=== PATIENT | female | born 1940 | race Caucasian/White ===

== ENCOUNTER 2023-06-28 09:00 | Outpatient (RCR) | payer MEDICARE, SELFPAY | END 2023-06-28 23:59 | disposition home or self-care (01) | LOC: RST 09:00 | PROVIDERS: ATTENDING PHYSICIAN Otolaryngology; FAMILY PHYSICIAN Family Medicine | DX: J38.3 Other diseases of vocal cords (principal); R49.0 Dysphonia | CPT/HCPCS: 92524 ==

== ENCOUNTER 2023-08-06 15:02 | Outpatient (RCR) | payer MEDICARE, SELFPAY | END 2023-08-06 23:59 | disposition home or self-care (01) | LOC: RST 15:02 | PROVIDERS: ATTENDING PHYSICIAN Otolaryngology; FAMILY PHYSICIAN Family Medicine | DX: J38.3 Other diseases of vocal cords (principal); R49.0 Dysphonia | CPT/HCPCS: 92507 ==

== ENCOUNTER 2023-09-03 13:50 | Outpatient (RCR) | payer MEDICARE, SELFPAY | END 2023-09-03 23:59 | disposition home or self-care (01) | LOC: RST 13:50 | PROVIDERS: ATTENDING PHYSICIAN Otolaryngology; FAMILY PHYSICIAN Family Medicine | DX: J38.3 Other diseases of vocal cords (principal); R49.0 Dysphonia | CPT/HCPCS: 92507 ==

== ENCOUNTER 2023-09-24 13:37 | Outpatient (RCR) | payer MEDICARE, SELFPAY | END 2023-09-24 23:59 | disposition home or self-care (01) | LOC: RST 13:37 | PROVIDERS: ATTENDING PHYSICIAN Otolaryngology; FAMILY PHYSICIAN Family Medicine | DX: J38.3 Other diseases of vocal cords (principal); R49.0 Dysphonia | CPT/HCPCS: 92507 ==

== ENCOUNTER → 2023-10-02 15:16 | Outpatient (REF) | payer MEDICARE, SELFPAY | LOC: RAD 15:16 | PROVIDERS: ATTENDING PHYSICIAN Family Medicine; FAMILY PHYSICIAN Family Medicine | DX: M54.42 Lumbago with sciatica, left side (principal) | CPT/HCPCS: 72110 ==

== ENCOUNTER 2023-10-15 14:26 | Outpatient (RCR) | payer MEDICARE, SELFPAY | END 2023-10-15 23:59 | disposition home or self-care (01) | LOC: RST 14:26 | PROVIDERS: ATTENDING PHYSICIAN Otolaryngology; FAMILY PHYSICIAN Family Medicine | DX: J38.3 Other diseases of vocal cords (principal); R49.0 Dysphonia | CPT/HCPCS: 92507 ==

== ENCOUNTER 2023-11-06 14:17 | Outpatient (RCR) | payer MEDICARE, SELFPAY | END 2023-11-06 23:59 | disposition home or self-care (01) | LOC: RPT 14:17 | PROVIDERS: ATTENDING PHYSICIAN Family Medicine; FAMILY PHYSICIAN Family Medicine | DX: M51.36 Other intervertebral disc degeneration, lumbar region (principal); Z73.6 Limitation of activities due to disability; M79.605 Pain in left leg; M25.552 Pain in left hip; M25.572 Pain in left ankle and joints of left foot; R26.89 Other abnormalities of gait and mobility | CPT/HCPCS: 97010; 97110; 97140; 97162 ==

== ENCOUNTER 2023-11-08 15:54 | Outpatient (RCR) | payer MEDICARE, SELFPAY | END 2023-11-08 23:59 | disposition home or self-care (01) | LOC: RST 15:54 | PROVIDERS: ATTENDING PHYSICIAN Otolaryngology; FAMILY PHYSICIAN Family Medicine | DX: R49.0 Dysphonia (principal); J38.3 Other diseases of vocal cords | CPT/HCPCS: 92507 ==

== ENCOUNTER 2023-11-30 13:47 | Outpatient (RCR) | payer MEDICARE, SELFPAY | END 2023-12-04 08:01 | disposition home or self-care (01) | LOC: RPT 13:47 | PROVIDERS: ATTENDING PHYSICIAN Family Medicine; FAMILY PHYSICIAN Family Medicine | DX: M51.36 Other intervertebral disc degeneration, lumbar region (principal); Z73.6 Limitation of activities due to disability | CPT/HCPCS: 97110; 97112 ==

== ENCOUNTER 2023-12-13 15:07 | Outpatient (RCR) | payer MEDICARE, SELFPAY | END 2023-12-14 09:10 | disposition home or self-care (01) | LOC: RST 15:07 | PROVIDERS: ATTENDING PHYSICIAN Otolaryngology; FAMILY PHYSICIAN Family Medicine | DX: R49.0 Dysphonia (principal); J38.3 Other diseases of vocal cords | CPT/HCPCS: 92507 ==

== ENCOUNTER → 2024-10-16 11:16 | Outpatient (REF) | payer MEDICARE, SELFPAY ==
[2024-10-16 12:02] LABS: % Basophils 0.3 % (0-2); % Eosinophils 0.3 % (0-6); % Immature Granulocytes 0.3 % (0-0.5); % Lymphocytes 20.3 % (20.5-51.1); % Monocytes 5.8 % (1.7-9.3); Absolute Lymphocytes 1.6 10^3/uL (1.2-3.4); Absolute Monocytes 0.5 10^3/uL (0.1-0.6); Absolute Neutrophils 5.7 10^3/uL (1.4-6.5); Hematocrit 41.9 % (37.0-47.0); Mean Corp Hgb Conc. 33.4 g/dL (33.0-37.0); Mean Corpuscular Hgb 31.1 pg (27.0-31.0); Mean Corpuscular Volume 93.1 fL (81.0-99.0); Mean Platelet Volume 10.4 fL (7.4-10.4); Nucleated Red Blood Cells % 0 %; Platelet Count 155 10^3/uL (130-400); Red Cell Dist. Width 14.3 % (11.5-14.5); White Blood Cell Count 7.7 10^3/uL (4.8-10.8)
[2024-10-16 12:35] LABS: ALT (SGPT) 22 U/L (0-35); AST (SGOT) 31 U/L (14-36); Albumin 3.9 g/dl (3.5-5.0); Alkaline Phosphatase 163 U/L (38-126); Blood Urea Nitrogen 26 mg/dl (7-17); Calcium 9.3 mg/dl (8.4-10.2); Carbon Dioxide 32 mmol/L (22-30); Chloride 104 mmol/L (98-107); Glucose 193 mg/dl (70-99); HDL Cholesterol 58 mg/dl; LDL Cholesterol, Calculated 50 mg/dl; Potassium 4.3 mmol/L (3.5-5.1); Sodium 142 mmol/L (135-145); Total Bilirubin 0.5 mg/dl (0.2-1.3); Total Cholesterol 130 mg/dl (50-199); Total Protein 6.3 g/dl (6.3-8.2); Triglyceride 112 mg/dl (10-149); Very Low Density Lipoprotein 22 mg/dl (0-30); eGFR > 60.00
[2024-10-16 14:25] LABS: Glycohemoglobin (HgbA1c) 7.8 % (4.0-5.6)
[2024-10-16 16:02] LABS: TSH Reflex To Free T4 2.65 uIU/ml (0.47-4.68)
== END ==
LOC: REG 11:16
PROVIDERS: ATTENDING PHYSICIAN Family Medicine
DX: E11.9 Type 2 diabetes mellitus without complications (principal); N18.2 Chronic kidney disease, stage 2 (mild); R39.81 Functional urinary incontinence; G45.9 Transient cerebral ischemic attack, unspecified; J38.00 Paralysis of vocal cords and larynx, unspecified
CPT/HCPCS: 36415; 80053; 80061; 83036; 84443; 85025

== ENCOUNTER → 2024-11-27 11:39 | Outpatient (REF) | payer MEDICARE, SELFPAY | LOC: RAD 11:39 | PROVIDERS: ATTENDING PHYSICIAN Family Medicine | DX: R05.3 Chronic cough (principal) | CPT/HCPCS: 71046 ==

== ENCOUNTER → 2025-04-17 10:13 | Outpatient (REF) | payer MEDICARE, SELFPAY ==
[2025-04-17 11:09] LABS: Hematocrit 44.3 % (37.0-47.0); Hemoglobin 14.7 g/dL (12.0-16.0); Mean Corp Hgb Conc. 33.2 g/dL (33.0-37.0); Mean Corpuscular Volume 94.3 fL (81.0-99.0); Nucleated Red Blood Cells % 0 %; Platelet Count 144 10^3/uL (130-400); Red Cell Dist. Width 13.9 % (11.5-14.5)
[2025-04-17 12:09] LABS: Blood Urea Nitrogen 30 mg/dl (7-17); Calcium 9.4 mg/dl (8.4-10.2); Carbon Dioxide 33 mmol/L (22-30); Chloride 102 mmol/L (98-107); Glucose 180 mg/dl (70-99); Potassium 4.2 mmol/L (3.5-5.1); Sodium 141 mmol/L (135-145); eGFR > 60.00
[2025-04-17 12:49] LABS: Glycohemoglobin (HgbA1c) 9.0 % (4.0-5.6)
== END ==
LOC: REG 10:13
PROVIDERS: ATTENDING PHYSICIAN Family Medicine
DX: E11.9 Type 2 diabetes mellitus without complications (principal)
CPT/HCPCS: 36415; 80048; 83036; 85025

== ENCOUNTER → 2025-06-03 09:28 | Outpatient (REF) | payer MEDICARE, SELFPAY | LOC: RAD 09:28 | PROVIDERS: ATTENDING PHYSICIAN Podiatrist; FAMILY PHYSICIAN Family Medicine | DX: E11.51 Type 2 diabetes mellitus with diabetic peripheral angiopathy without gangrene (principal); L84 Corns and callosities | CPT/HCPCS: 93923 ==

== ENCOUNTER 2025-06-05 06:23 | Outpatient (RCR) | payer MEDICARE, SELFPAY | END 2025-06-05 23:59 | disposition home or self-care (01) | LOC: RPT 06:23 | PROVIDERS: ATTENDING PHYSICIAN Family Medicine | DX: R26.2 Difficulty in walking, not elsewhere classified (principal); Z73.6 Limitation of activities due to disability; M62.81 Muscle weakness (generalized); R26.89 Other abnormalities of gait and mobility; I69.398 Other sequelae of cerebral infarction; Z91.81 History of falling | CPT/HCPCS: 97110; 97162 ==

== ENCOUNTER 2025-06-19 08:56 | Outpatient (RCR) | payer MEDICARE, SELFPAY | END 2025-06-19 23:59 | disposition home or self-care (01) | LOC: RST 08:56 | PROVIDERS: ATTENDING PHYSICIAN Otolaryngology; FAMILY PHYSICIAN Family Medicine | DX: J38.3 Other diseases of vocal cords (principal); R49.0 Dysphonia | CPT/HCPCS: 92507; 92524 ==

== ENCOUNTER 2025-06-30 12:34 | Outpatient (RCR) | payer MEDICARE, SELFPAY | END 2025-07-06 23:59 | disposition home or self-care (01) | LOC: RPT 12:34 | PROVIDERS: ATTENDING PHYSICIAN Family Medicine | DX: M62.81 Muscle weakness (generalized) (principal); Z73.6 Limitation of activities due to disability; R26.2 Difficulty in walking, not elsewhere classified; R26.81 Unsteadiness on feet; R26.89 Other abnormalities of gait and mobility; I69.398 Other sequelae of cerebral infarction; Z91.81 History of falling | CPT/HCPCS: 97110; 97112 ==